=== PATIENT | male | born 1975 | race Caucasian/White ===

== ENCOUNTER 2020-02-15 07:29 | Outpatient (CLI) | payer OTHER ==
--- NOTE | 2020-02-15 10:03 | MRI ---
MRI OF THE RIGHT KNEE WITHOUT CONTRAST: INDICATION: History of right injury at work. COMPARISON: Right knee radiograph dated 01/27/2020. FINDINGS: There is a focal area of near full-thickness articular cartilage thinning and fissuring involving the posterior lateral femoral condyle. The full-thickness fissure measures approximately 2 mm on image 7 of series 5 and image 18 of series 6. There is moderate chondrosis involving the superficial artic ular cartilage of the lateral patellar facet and median patellar ridge and lower medial patellar face t. There is a moderate-sized Owen's cyst with fluid overlying the medial gastrocnemius suspicious f or partial rupture. The MCL, ACL, PCL, LCLC, and extensor mechanism are intact. There is an oblique ly oriented full-thickness tear involving the posterior root of the medial meniscus with partial medi al extrusion. The lateral meniscus appears intact. A few small osteophytes are seen involving the m ajor compartments of the right knee. IMPRESSION: 1. Mild osteoarthrosis of the right knee. 2. Obliquely oriented radial tear involving the posterior root of the medial meniscus partial medial extrusion. 3. Partial rupture of a moderate-sized Owen's cyst. POS: BH
== END 2020-02-15 07:30 | disposition home or self-care (01) ==
LOC: TBSIIMAG 07:29
PROVIDERS: ATTEND Nurse Practitioner Family
DX: S89.91XD Unspecified injury of right lower leg, subsequent encounter (principal); M17.11 Unilateral primary osteoarthritis, right knee; M23.221 Derangement of posterior horn of medial meniscus due to old tear or injury, right knee; M71.21 Synovial cyst of popliteal space [Baker], right knee

== ENCOUNTER 2020-04-15 14:02 | Outpatient (CLI) | payer OTHER ==
[2020-04-15 14:42] LABS: #Eosinphils 0.3 10x3/uL (0.0-0.5); #Monocytes 0.4 10x3/uL (0.0-1.1); #Neutrophils 2.9 10x3/uL (1.5-8.4); %Basophils 0.8 % (0.0-2.0); %Eosinophils 4.8 % (0.0-6.0); %Lymphocytes 31.4 % (18.0-47.0); %Neutrophils 54.8 % (40.0-75.0); Hemoglobin 14.8 g/dL (14.0-18.0); Mean Corpuscular HGB CONC 32.8 G/DL (32.0-36.0); Mean Corpuscular Volume 88.4 fl (80.0-100.0); Mean Platelet Volume 12.4 fl (7.4-10.4); Platelet Count 175 10x3/uL (130-400); RBC Distribution Width 13.1 % (11.5-14.5); White Blood Cell (WBC) Count 5.2 10x3/uL (4.5-11.0)
[2020-04-15 15:06] LABS: Anion Gap 15 mmol/L (10-20); BUN (Urea Nitrogen) 15 mg/dL (8.9-20.6); Calc. Creatinine Clearance 0 mL/min (70-130); Calcium 8.9 mg/dL (7.8-10.44); Carbon Dioxide 22 mmol/L (22-29); Chloride 108 mmol/L (98-107); Estimated GFR-MDRD Greater than 90; Glucose 107 mg/dL (70-105); Potassium 3.9 mmol/L (3.5-5.1); Sodium 141 mmol/L (136-145)
[2020-04-16 11:01] LABS: SARS-CoV-2 MS2 Positive; SARS-CoV-2 N Gene Negative; SARS-CoV-2 S Gene Negative; SARS-CoV-2 by NAA Not Detected (NotDetected); SARS-CoV-2 orf1ab Negative
== END 2020-04-15 14:03 | disposition home or self-care (01) ==
LOC: LABBT 14:02
PROVIDERS: ATTEND Orthopaedic Surgery
DX: Z01.812 Encounter for preprocedural laboratory examination (principal); Z20.828 Contact with and (suspected) exposure to other viral communicable diseases; S83.206A Unspecified tear of unspecified meniscus, current injury, right knee, initial encounter
CPT/HCPCS: 80048; 85025; 87635; U0003

== ENCOUNTER 2020-04-20 05:50 | Day surgery (SDC) | payer OTHER ==
[2020-04-18 15:03] VITALS: BMI 30.1
[2020-04-20] MEDS ORDERED: Bupivacaine PF 0.5% 30 ML VIAL ONE ×2 (06:52→09:29)
[2020-04-20] MEDS ORDERED: Bupivacaine 0.25% HCL 30 ML VIAL ONE (06:52)
[2020-04-20] MEDS ORDERED: Lidocaine 1% w/Epinephrine 1:100K 20 ML VIAL ONE (06:52)
[2020-04-20] MEDS ORDERED: PROPOFOL 20 ML ONE (06:58)
[2020-04-20] MEDS ORDERED: Fentanyl 100 MCG/2 ML VIAL ONE (07:53)
[2020-04-20] MEDS ORDERED: Ketorolac Tromethamine 30 MG/ML VIAL ONE (09:29)
[2020-04-20] MEDS ORDERED: Ondansetron PF 4 MG/2 ML Vial ONE (09:29)
[2020-04-20] MEDS ORDERED: Lidocaine 2% w/Epinephrine 1:200K 20 ML VIAL ONE (09:29)
[2020-04-20] MEDS ORDERED: PROPOFOL 200 MG/20 ML VIAL ONE (09:29)
[2020-04-20] MEDS ORDERED: Lidocaine 1% PF 5 ML VIAL ONE (09:29)
--- NOTE | 2020-04-21 07:11 | OP ---
DATE OF PROCEDURE: 04/20/2020 PREOPERATIVE DIAGNOSIS: Right knee medial meniscus posterior horn root tear. POSTOPERATIVE DIAGNOSIS: Right knee medial meniscus posterior horn root tear. PROCEDURES PERFORMED: Right knee arthroscopy with arthroscopically-assisted repair of medial meniscus root. TALENT PARTNER: George Hyde PA-C. The cardiovascular physician assistant surgeon was present throughout the procedure to include preparation of the meniscus, drilling of tunnels, passing of sutures, and final fixation of the root as well as closure of all knee wounds. ESTIMATED BLOOD LOSS: Minimal. COMPLICATIONS: None. ANESTHESIA: He had general anesthetic. He also had local knee block. Taken to recovery room in stable condition. IMPLANT: 4.75 [employer] SwiveLock. INDICATIONS FOR PROCEDURE: This is a 44-year-old male, who injured his knee months ago and was found on an MRI to have a tear of the medial meniscus posterior root, and at this time, since he has failed all nonoperative treatment, he wished to have this repaired. DESCRIPTION OF PROCEDURE: After all appropriate consent forms were explained and signed, he was taken to the operating room, and at that time, he was given a general anesthetic. Once the level of anesthesia was appropriate, tourniquet was placed on the right thigh and the leg was placed in the arthroscopic leg shi. The limb was exsanguinated and the tourniquet was taken up to 300 mmHg. Inferolateral portal was then established and the scope was placed into the knee joint. A needle localization technique was then used to make our medial working portal. Diagnostic arthroscopy commenced in the notch. The ACL and PCL were probed, found to be intact. Medial compartment showed good cartilage on the femur and tibia. The remaining medial meniscus was intact and indeed the root was torn off completely with a radial tear. The lateral compartment was found to be intact. Patellofemoral joint was evaluated and showed the patella to be in excellent condition. There was a small area of chondral wear in the central trochlea. Looking through the gutters to make sure there were no loose bodies and indeed there were none, but we were also noted a line of osteophyte grown off the medial femoral condyle. At this time, we turned our attention to our root repair. A larger shaver was introduced and in the notch, a reverse notchplasty was performed of the medial and posterior aspects of the medial femoral condyle as well as medial tibial spine to give us enough room to perform our repair. The small shaver was then placed and was used to debride the small amount of meniscal tissue still on the anatomic root insertion site as well as the edge of the meniscus itself. At this time, through a [id number] guide, we made a small incision on the tibia and through this incision and through our guide set at approximately 55 degrees, a 6 mm flip cutter was placed up through the guide into our anatomic position. This was flipped under direct visualization and once the blade had flipped, we then pulled back distally reaming approximately 10 mm of a tunnel. This was then pushed back up into the joint, flipped and pulled out through our impacted cannula to hold our hole open. Through the cannula, we then placed a fiber stick and then pulled this out the medial portal, so that we had a loop for later passing our stitches. These were snapped together, so that this could not be dislodged and removed. We then placed a PassPort cannula through our medial portal. We then used a meniscal scorpion to place 2 racking stitches with FiberLink suture through the edge of our medial meniscus. We then pulled our loop through the PassPort portal and used the loop to pull our stitches down through our previously made tibial tunnel. At this time, we guided with the probe our medial meniscus into the prepared bony bed while simultaneously pulling all our stitches. This pulled our medial meniscus into the anatomic position. Once this was done, we then drilled, tapped, and placed a 4.75 SwiveLock for fixation, pulling tension through our stitches. At this time, we diagnosed SwiveLock fdc down, looked into the knee, confirming continued reduction of our meniscus. We then finished placing our SwiveLock and cut our stitches. We looked into the knee one last time confirming anatomic reduction and repair followed by removing the scope, draining the knee, and closing our portals as well as our small tibia incision with deep Vicryl and nylon sutures. Bulky sterile dressing was applied and tourniquet was let down. At this time, the patient was awakened and was taken to recovery room in stable condition. All counts were correct at the end of the case and he did receive preoperative IV antibiotics. Toes pinked up nicely once the tourniquet was let down. A knee immobilizer was placed on to the patient's knee in the operating room prior to taking him to recovery room. Job ID: [id number] [id number]
== END 2020-04-20 11:25 | disposition home or self-care (01) ==
LOC: SDC 05:50
PROVIDERS: ATTEND Orthopaedic Surgery
PROC: 0SQC4ZZ Repair Right Knee Joint, Percutaneous Endoscopic Approach (ICD-10-PCS; principal; 2020-04-20)
DX: S83.241A Other tear of medial meniscus, current injury, right knee, initial encounter (principal)
CPT/HCPCS: C1713; J0690; J1885; J2405; J2704; J3010; S0020